=== PATIENT | male | born 1945 | race Caucasian/White ===

== ENCOUNTER 2018-02-10 07:15 | Emergency (ER) | payer MEDICARE, OTHER ==
[2018-02-10 07:22] VITALS: BMI 34.9
[2018-02-10 07:31] VITALS: TEMP 98.5
[2018-02-10 08:36] LABS: BASO # 0.1 K/uL (0.0-0.2); EOS # 0.2 K/uL (0.0-0.7); EOS % 3.2 % (0.0-4.0); HEMOGLOBIN 15.7 g/dL (12.0-18.0); LYMPH # 1.6 K/uL (1.0-4.3); LYMPH % 26.1 % (20.0-40.0); MEAN CORPUSCULAR HEMOGLOBIN 32.8 pg (27.0-31.0); MEAN CORPUSCULAR HGB CONC 33.8 g/dL (33.0-37.0); MONO # 0.8 K/uL (0.0-0.8); MONO % 12.9 % (0.0-10.0); NEUT # 3.6 K/uL (1.8-7.0); NEUT % 56.8 % (50.0-75.0); NRBC % 0.1 % (0.0-2.0); RBC 4.78 Mil/uL (4.40-5.90); RED CELL DISTRIBUTION WIDTH 13.1 % (11.5-14.5); WHITE BLOOD COUNT 6.3 K/uL (4.8-10.8)
[2018-02-10 08:48] LABS: ALB/GLOB RATIO 1.5 (1.0-2.1); ALBUMIN 4.7 g/dL (3.5-5.0); ALT/SGPT 140 U/L (21-72); AMYLASE 84 U/L (30-110); AST/SGOT 135 U/L (17-59); BLOOD UREA NITROGEN 17 mg/dL (9-20); CALCIUM 9.7 mg/dl (8.6-10.4); GFR NON-AFRICAN AMERICAN > 60; LIPASE 62 U/L (23-300)
--- NOTE | 2018-02-10 08:51 | RAD ---
HISTORY: weakness COMPARISON: None available. TECHNIQUE: Chest, one view. FINDINGS: Examination limited by habitus and hypoinflation. LUNGS: Mild left basilar atelectasis. Probable 4 mm right upper lobe calcified granuloma. Please note that chest x-ray has limited sensitivity for the detection of pulmonary masses. PLEURA: No significant pleural effusion identified. No definite pneumothorax . CARDIOVASCULAR: Dual lead left-sided pacemaker. Cardiomegaly. Atherosclerotic calcification of the aorta. OSSEOUS STRUCTURES: No acute osseous abnormality identified. VISUALIZED UPPER ABDOMEN: Unremarkable. OTHER FINDINGS: None. IMPRESSION: Left-sided pacemaker. Cardiomegaly. Mild left basilar atelectasis. 4 mm calcified granuloma right upper lobe.
[2018-02-10 08:55] LABS: INR 1.1; PROTHROMBIN TIME 11.9 SECONDS (9.7-12.2)
[2018-02-10 08:57] LABS: CK-MB 2.01 ng/mL (0.0-3.38)
--- NOTE | 2018-02-10 09:07 | CT ---
Date of service: 02/10/2018 PROCEDURE: CT HEAD WITHOUT CONTRAST. HISTORY: weakness, new tremor COMPARISON: None available. TECHNIQUE: Axial computed tomography images were obtained through the head/brain without intravenous contrast. Radiation dose: Total exam DLP = 1717.18 mGy-cm. This CT exam was performed using one or more of the following dose reduction techniques: Automated exposure control, adjustment of the mA and/or kV according to patient size, and/or use of iterative reconstruction technique. FINDINGS: Streak artifact obscures evaluation of the skull base. Motion artifact. HEMORRHAGE: No intracranial hemorrhage. BRAIN: Diffuse atrophy with prominence of the ventricles and sulci noted. No mass effect or edema. Mild scattered white matter hypodensities, which are nonspecific, but often seen with chronic microvascular ischemic disease. Please note that MRI with diffusion imaging is more sensitive in the detection of acute ischemic event. VENTRICLES: No hydrocephalus. CALVARIUM: Unremarkable. PARANASAL SINUSES: Mucosal polyp/cyst, left maxillary sinus. MASTOID AIR CELLS: Unremarkable as visualized. No inflammatory changes. OTHER FINDINGS: None. IMPRESSION: Examination limited by motion and streak artifact. Nonspecific white matter changes. Generalized atrophy. Mucosal polyp/cysts, left maxillary sinus.
[2018-02-10 11:06] LABS: URINE BILIRUBIN NEGATIVE (NEGATIVE); URINE BLOOD NEGATIVE (NEGATIVE); URINE CALCIUM OXALATE CRYSTALS MOD /hpf (<OCC); URINE CLARITY Clear (Clear); URINE COLOR Amber (YELLOW); URINE GLUCOSE (UA) NORMAL (Normal); URINE LEUKOCYTE ESTERASE NEG Leu/uL (Negative); URINE PROTEIN 1+ mg/dL (NEGATIVE)
--- NOTE | 2018-02-10 11:11 | C.PDOC ---
History Of Present Illness 72 y/o male comes in to ED stating that he has not been feeling well and having poor appetite for the past 4 days. States he has difficulty sleeping and also complains of shaking. Patient states that he started shaking a week ago and it has progressively worsened. Denies any other physical complaints. Time Seen by Provider: 02/10/18 07:27 Chief Complaint (Nursing): Medical Clearance History Per: Patient History/Exam Limitations: no limitations Onset/Duration Of Symptoms: Days Current Symptoms Are (Timing): Still Present Past Medical History Reviewed: Historical Data, Nursing Documentation, Vital Signs Vital Signs: Last Vital Signs Temp 98.5 F 02/10/18 07:22 Pulse 87 02/10/18 10:35 Resp 18 02/10/18 10:35 BP 121/83 02/10/18 10:35 Pulse Ox 97 02/10/18 10:35 - Medical History PMH: Bipolar Disorder, Depression, HTN, Hypercholesterolemia, Hypothyroidism Surgical History: Pacemaker Family History: States: No Known Family Hx - Social History Hx Alcohol Use: No Hx Substance Use: No - Immunization History Hx Tetanus Toxoid Vaccination: No Hx Influenza Vaccination: No Hx Pneumococcal Vaccination: No Review Of Systems Except As Marked, All Systems Reviewed And Found Negative. Constitutional: Negative for: Fever, Chills Cardiovascular: Negative for: Chest Pain Respiratory: Negative for: Shortness of Breath Gastrointestinal: Negative for: Vomiting, Abdominal Pain Skin: Negative for: Rash Neurological: Positive for: Other (Tremors). Negative for: Weakness Physical Exam - Physical Exam Appears: Non-toxic, No Acute Distress, Other (Flat affect) Skin: Warm, Dry Head: Atraumatic, Normacephalic Eye(s): bilateral: Normal Inspection, PERRL, EOMI Oral Mucosa: Moist Neck: Supple Cardiovascular: Rhythm Regular, No Murmur Respiratory: Normal Breath Sounds Gastrointestinal/Abdominal: Soft, No Tenderness Extremity: Bilateral: Atraumatic, Normal Color And Temperature, Normal ROM Neurological/Psych: Oriented x3, Normal Speech, Other (Resting tremor) ED Course And Treatment - Laboratory Results Result Diagrams: 02/10/18 08:30 02/10/18 08:30 O2 Sat by Pulse Oximetry: 97 (RA) Pulse Ox Interpretation: Normal - Other Rad CXR X-Ray: Read By Radiologist Interpretation: FINDINGS: Examination limited by habitus and hypoinflation. LUNGS: Mild left basilar atelectasis. Probable 4 mm right upper lobe calcified granuloma. Please note that chest x-ray has limited sensitivity for the detection of pulmonary masses. PLEURA: No significant pleural effusion identified. No definite pneumothorax . CARDIOVASCULAR: Dual lead left-sided pacemaker. Cardiomegaly. Atherosclerotic calcification of the aorta. OSSEOUS STRUCTURES: No acute osseous abnormality identified. VISUALIZED UPPER ABDOMEN: Unremarkable. OTHER FINDINGS: None. IMPRESSION: Left-sided pacemaker. Cardiomegaly. Mild left basilar atelectasis. 4 mm calcified granuloma right upper lobe. - CT Scan/US Head CT Other Rad Studies (CT/US): Read By Radiologist, Radiology Report Reviewed CT/US Interpretation: FINDINGS: Streak artifact obscures evaluation of the skul l base. Motion artifact. HEMORRHAGE: No intracranial hemorrhage. BRAIN: Diffuse atrophy with prominence of the ventricles and sulci noted. No mass effect or edema. Mild scattered white matter hypodensities, which are nonspecific, but often seen with chronic microvascular ischemic disease. Please note that MRI with diffusion imaging is more sensitive in the detection of acute ischemic event. VENTRICLES: No hydrocephalus. CALVARIUM: Unremarkable. PARANASAL SINUSES: Mucosal polyp/cyst, left maxillary sinus. MASTOID AIR CELLS: Unremarkable as visualized. No inflammatory changes. OTHER FINDINGS: None. IMPRESSION: Examination limited by motion and streak artifact. Nonspecific white matter changes. Generalized atrophy. Mucosal polyp/cysts, left maxillary sinus. Progress Note: Bloodwork, head CT, UA, and chest XR ordered. Spoke to patients PMD Dr. Pat who states that the patient was seen in [place] for similar complaint 2 days ago and was d/c home. Patient had labs work, CT head w/o acute changes. requested to discharge patient home, follow up in his office on 02/12/2018 at 1 pm. Patient will be referred to neurologist. Disposition - Disposition Referrals: Aubrey Pat MD [Staff Provider] - Disposition: HOME/ ROUTINE Disposition Time: 12:23 Condition: STABLE Additional Instructions: Follow up with PMD on February 12 at 1 pm. Return to ED if feel worse. Instructions: Tremor, Insomnia (DC), Tips for Getting Better Sleep Forms: [employer] (Niuean) Print Language: NAURUAN - Clinical Impression Clinical Impression: Tremor, Insomnia - PA / REGIONAL MARKETING DIRECTOR / Resident Statement MD/DO has reviewed & agrees with the documentation as recorded. - Scribe Statement The provider has reviewed the documentation as recorded by the Scribe Darcie Jauregui All medical record entries made by the Sherlyibbenson were at my direction and personally dictated by me. I have reviewed the chart and agree that the record accurately reflects my personal performance of the history, physical exam, medical decision making, and the department course for this patient. I have also personally directed, reviewed, and agree with the discharge instructions and disposition.
[2018-02-10 13:13] VITALS: BP 148/93; PULSE 64; RESP 14
[2018-02-10 19:19] VITALS: O2SAT 97
--- NOTE | 2018-02-12 22:07 | CARD ---
APPROVED REPORT Date of service: 02/10/2018 EKG Measurement Heart [id number] <Conclusion> AV dual-paced rhythm Abnormal ECG
== END 2018-02-10 13:13 | disposition home or self-care (01) ==
LOC: C.ER 07:15
DX: R25.1 Tremor, unspecified (principal); G47.00 Insomnia, unspecified

== ENCOUNTER 2018-04-05 14:25 | Emergency (ER) | payer MEDICARE, OTHER ==
[2018-04-05 14:25] VITALS: BMI 34.9
--- NOTE | 2018-04-05 15:36 | C.PDOC ---
History Of Present Illness 72 year old male brought into ED by EMS from Dr.Deepak Pat's office for depression. Patient lives alone and is non-compliant with medication. Patient has a history of long in-patient psychiatric care. Patient's last discharged was on September 2017. Patient denies any physical complaints. Time Seen by Provider: 04/05/18 15:33 Chief Complaint (Nursing): Psychiatric Evaluation History Per: Patient History/Exam Limitations: no limitations Onset/Duration Of Symptoms: Hrs Current Symptoms Are (Timing): Still Present Suicide/Self Injury Attempted (Context): None Associated Symptoms: Depression Past Medical History Reviewed: Historical Data, Nursing Documentation, Vital Signs Vital Signs: Last Vital Signs Temp 98.7 F 04/05/18 14:33 Pulse 66 04/05/18 14:33 Resp 18 04/05/18 14:33 BP 164/110 H 04/05/18 14:33 Pulse Ox 98 04/05/18 14:33 - Medical History PMH: Bipolar Disorder, Depression, HTN, Hypercholesterolemia, Hypothyroidism Surgical History: Pacemaker Family History: States: Unknown Family Hx - Social History Hx Alcohol Use: No Hx Substance Use: No - Immunization History Hx Tetanus Toxoid Vaccination: No Hx Influenza Vaccination: No Hx Pneumococcal Vaccination: No Review Of Systems Constitutional: Negative for: Fever, Chills, Weakness Cardiovascular: Negative for: Chest Pain, Palpitations Respiratory: Negative for: Cough, Shortness of Breath Gastrointestinal: Negative for: Nausea, Vomiting Neurological: Negative for: Weakness, Numbness, Dizziness Psych: Positive for: Depression Physical Exam - Physical Exam Appears: Chronically Ill, Other (flat affect) Skin: Normal Color, Warm, Dry Head: Atraumatic, Normacephalic Neck: Normal ROM, Supple Chest: Symmetrical, No Deformity Cardiovascular: Rhythm Regular, No Murmur Respiratory: No Accessory Muscle Use Gastrointestinal/Abdominal: Soft, No Tenderness Neurological/Psych: Oriented x3, Normal Speech, Normal Cognition ED Course And Treatment - Laboratory Results Result Diagrams: 04/05/18 16:09 04/05/18 16:09 Lab Interpretation: Normal (tox/etoh neg) ECG: Interpreted By Me ECG Rhythm: Sinus Rhythm ECG Interpretation: Normal Rate From EC O2 Sat by Pulse Oximetry: 98 (RA) Pulse Ox Interpretation: Normal - Radiology CXR: Interpreted by Me CXR Interpretation: Yes: No Acute Disease Progress Note: EKG and CXR ordered for patient. Labs ordered with CBC and UA for patient. Reevaluation Time: 19:22 Reassessment Condition: Unchanged - Physician Consult Information Outcome Of Conversation: 1919: d/w Crisis, pt coherent and not harm to self/oth ers, declines adm. Not screenable. Safe for d/c and opt f/u. Disposition Doctor Will See Patient In The: Office Counseled Patient/Family Regarding: Studies Performed - Disposition Referrals: [facility] [Outside] [employer] [Outside] [facility] [Outside] [facility] [Outside] Aubrey Pat MD [Staff Provider] - Disposition: HOME/ ROUTINE Disposition Time: 20:00 Condition: GOOD Additional Instructions: continue to seek outpatient follow-up for your depression Consider long-term inpatient psychiatric admission Instructions: Depression, Adult (DC) Forms: [employer] (Serbian) - Clinical Impression Clinical Impression: Depression - Scribe Statement The provider has reviewed the documentation as recorded by the Scribe (Ariana Kenney) All medical record entries made by the Scribe were at my direction and personally dictated by me. I have reviewed the chart and agree that the record a ccurately reflects my personal performance of the history, physical exam, medical decision making, and the department course for this patient. I have also personally directed, reviewed, and agree with the discharge instructions and disposition.
[2018-04-05 16:12] LABS: EOS # 0.3 K/uL (0.0-0.7); HEMOGLOBIN 15.1 g/dL (12.0-18.0); MEAN CORPUSCULAR HGB CONC 33.7 g/dL (33.0-37.0); NRBC % 0.1 % (0.0-2.0); WHITE BLOOD COUNT 7.5 K/uL (4.8-10.8)
[2018-04-05 16:19] LABS: URINE BILIRUBIN NEGATIVE (NEGATIVE); URINE BLOOD NEGATIVE (NEGATIVE); URINE CALCIUM OXALATE CRYSTALS RARE /hpf (<OCC); URINE CLARITY Hazy (Clear); URINE COLOR Amber (YELLOW); URINE GLUCOSE (UA) NORMAL (Normal); URINE LEUKOCYTE ESTERASE NEG Leu/uL (Negative); URINE PROTEIN 2+ mg/dL (NEGATIVE)
[2018-04-05 16:25] LABS: ALB/GLOB RATIO 1.7 (1.0-2.1); ALBUMIN 4.7 g/dL (3.5-5.0); ALT/SGPT 17 U/L (21-72); AST/SGOT 19 U/L (17-59); BASO % 0.5 % (0.0-2.0); BLOOD UREA NITROGEN 8 mg/dL (9-20); CALCIUM 9.6 mg/dl (8.6-10.4); EOS % 3.6 % (0.0-4.0); GFR NON-AFRICAN AMERICAN > 60; LYMPH # 2.2 K/uL (1.0-4.3); LYMPH % 29.4 % (20.0-40.0); MEAN CELL VOLUME 96.7 fL (80.0-94.0); MEAN CORPUSCULAR HEMOGLOBIN 32.6 pg (27.0-31.0); MEAN PLATELET VOLUME 10.3 fL (7.2-11.7); MONO # 0.6 K/uL (0.0-0.8); MONO % 8.3 % (0.0-10.0); NEUT # 4.3 K/uL (1.8-7.0); NEUT % 58.2 % (50.0-75.0); RBC 4.63 Mil/uL (4.40-5.90); RED CELL DISTRIBUTION WIDTH 12.9 % (11.5-14.5)
[2018-04-05 16:37] LABS: BARBITURATES, UR NEGATIVE (NEGATIVE); BENZODIAZEPINES, UR NEGATIVE (NEGATIVE); OPIATES, UR NEGATIVE (NEGATIVE); PHENCYCLIDINE, UR NEGATIVE (NEGATIVE)
[2018-04-05 19:57] VITALS: BP 165/90; PULSE 71; RESP 20; TEMP 98
--- NOTE | 2018-04-06 08:18 | RAD ---
Date of service: 04/05/2018 HISTORY: psych adm COMPARISON: 02/10/2018. FINDINGS: LUNGS: The lungs are well inflated and clear. PLEURA: No pleural effusions or pneumothorax. CARDIOVASCULAR: The heart is normal in size. There are aortic atherosclerotic calcifications present. There is stable position of left-sided dual lead permanent pacing device. OSSEOUS STRUCTURES: Within normal limits for the patient's age. VISUALIZED UPPER ABDOMEN: Normal. OTHER FINDINGS: None. IMPRESSION: No active pulmonary disease.
[2018-04-06 23:43] VITALS: O2SAT 98
--- NOTE | 2018-04-09 22:29 | CARD ---
APPROVED REPORT Date of service: 04/05/2018 EKG Measurement Heart [id number] <Conclusion> Normal sinus rhythm Nonspecific T wave abnormality Abnormal ECG
== END 2018-04-05 19:59 | disposition home or self-care (01) ==
LOC: C.ER 14:25
DX: F32.9 Major depressive disorder, single episode, unspecified (principal); Z91.14 Patient's other noncompliance with medication regimen
CPT/HCPCS: 71045; 80053; 81001; 83735; 84100; 85025; 93005; 99284; G0480